=== PATIENT | female | born 1945 | race Caucasian/White ===

== ENCOUNTER 2017-03-01 13:20 | Inpatient (IN) | payer OTHER ==
[~2017-03-01] VITALS: Ht 157.5 cm; Wt 109.5 kg
[2017-03-01 14:47] LABS: HEMATOCRIT 35.5 % (36.0-46.0); MCHC 33.2 G/DL (30.0-36.0); MCV 96.2 FL (83-99); MEAN PLAT.VOLUME 11.5 uM^3 (9.5-12.4); NRBC (%) 0.1 /100 WBC (0-0); PLATELET COUNT 136 K/uL (156-360); RBC DIS.WIDTH-CV 14.6 % (11.8-14.6); RBC DIS.WIDTH-SD 51.3 % (39-53); RED BLOOD COUNT 3.69 M/uL (3.80-5.20); WHITE BLOOD COUNT 29.8 K/uL (4.1-10.2)
[2017-03-01 14:55] LABS: CHLORIDE 106 mEq/L (99-109); POTASSIUM 4.5 mEq/L (3.7-5.4); SODIUM 136 mEq/L (136-147)
[2017-03-01 14:57] LABS: GLUCOSE 137 mg/dL (70-99)
[2017-03-01 14:58] LABS: ANION GAP 16 MEQ/L (2-14)
[2017-03-01 15:00] LABS: GFR ESTIMATE (CALCULATED) 9 mL/min/
[2017-03-01 15:01] LABS: UREA NITROGEN (BUN) 63 mg/dL (9-23)
[2017-03-01] MEDS ORDERED: ALLOPURINOL100 MG PO (15:41)
[2017-03-01] MEDS ORDERED: SYNTHROID137 MCG PO (15:41)
[2017-03-01] MEDS ORDERED: TOPROL XL50 MG PO (15:42)
[2017-03-01] MEDS ORDERED: TOPROL XL100 MG PO (15:42)
[2017-03-01] MEDS ORDERED: LO-DOSE ASPIRIN81 M2 PO (15:42)
[2017-03-01 16:59] LABS: ADD MIUA? YES; BILIRUBIN NEGATIVE; BLOOD MODERATE; GLUCOSE (STRIP) NEGATIVE; KETONES NEGATIVE; LEUKOCYTES LARGE; NITRITE NEGATIVE; PROTEIN (STRIP) 30; SPECIFIC GRAVITY 1.015 (1.000-1.030); UROBILINOGEN 0.2 MG/DL (0.2-1.0)
[2017-03-01 17:02] LABS: COLOR YELLOW ((YELLOW))
[2017-03-01 17:20] LABS: BACTERIA 1+ /HPF; CASTS NONE SEEN /LPF; CRYSTALS NONE SEEN; EPITHELIAL CELLS NONE SEEN /HPF; MUCUS NONE SEEN /LPF; RED BLOOD CELLS 0-5 /HPF (0-5); WHITE BLOOD CELLS TNTC /HPF (0-5)
[2017-03-01 21:57] LABS: BASE EXCESS -9.3 mEq/L (-3 to +3); BICARBONATE 15.1 mEq/L (22-26); CARBOXY HGB 1.5 % (0-5); COMMENTS - BLOOD GASES C+; DEVICE NC; METHEMOGLOBIN 0.7 % (0-1.5); O2 FLOW 1 L/MIN; PCO2 28 mm Hg (35-45); PO2 69 mm Hg (80-100); SITE RR; TOTAL RESP RATE 32 resp/min; pH 7.34 (7.35-7.45)
[2017-03-01 22:14] LABS: POINT-OF-CARE METER ID UU13113702
[2017-03-01 23:04] LABS: TROP-I INTERPRETATION NEGATIVE; TROPONIN-I 0.02 ng/mL (0.0-0.30)
[2017-03-02 00:20] LABS: CHLORIDE 105 mEq/L (99-109); SODIUM 134 mEq/L (136-147)
[2017-03-02 00:21] LABS: POTASSIUM 5.7 mEq/L (3.7-5.4)
[2017-03-02 00:22] LABS: GLUCOSE 116 mg/dL (70-99)
[2017-03-02 00:23] LABS: ANION GAP 15 MEQ/L (2-14)
[2017-03-02 00:26] LABS: GFR ESTIMATE (CALCULATED) 9 mL/min/
[2017-03-02 00:27] LABS: UREA NITROGEN (BUN) 66 mg/dL (9-23)
[2017-03-02 03:03] VITALS: BP 122/56
[2017-03-02 04:09] LABS: HEMATOCRIT 32.8 % (36.0-46.0); MCH 32.1 PG (29.0-34.0); MCHC 33.8 G/DL (30.0-36.0); MCV 94.8 FL (83-99); MEAN PLAT.VOLUME 11.7 uM^3 (9.5-12.4); PLATELET COUNT 102 K/uL (156-360); RBC DIS.WIDTH-CV 14.7 % (11.8-14.6); RBC DIS.WIDTH-SD 50.6 % (39-53); RED BLOOD COUNT 3.46 M/uL (3.80-5.20); WHITE BLOOD COUNT 22.8 K/uL (4.1-10.2)
[2017-03-02 04:27] LABS: CHLORIDE 107 mEq/L (99-109); POTASSIUM 5.3 mEq/L (3.7-5.4); SODIUM 136 mEq/L (136-147)
[2017-03-02 04:28] LABS: GLUCOSE 112 mg/dL (70-99)
[2017-03-02 04:30] LABS: ANION GAP 16 MEQ/L (2-14)
[2017-03-02 04:32] LABS: GFR ESTIMATE (CALCULATED) 9 mL/min/
[2017-03-02 04:33] LABS: UREA NITROGEN (BUN) 71 mg/dL (9-23)
[2017-03-02 04:42] VITALS: BP 122/56
[2017-03-02 07:34] VITALS: BP 113/59
[2017-03-02 11:42] VITALS: BP 101/56
[2017-03-02 13:52] LABS: ANION GAP 16 MEQ/L (2-14); CHLORIDE 107 MEQ/L (99-109); GFR ESTIMATE (CALCULATED) 11 mL/min/; GLUCOSE 105 mg/dL (70-99); POTASSIUM 4.5 MEQ/L (3.7-5.4); SAMPLE HEMOLYSIS CHECK 0; SAMPLE ICTERIC CHECK 0; SAMPLE LIPEMIA CHECK 0; SODIUM 137 MEQ/L (136-147); UREA NITROGEN (BUN) 72 mg/dL (9-23)
[2017-03-02 15:26] VITALS: BP 120/60
[2017-03-02 18:03] LABS: CHLORIDE 107 mEq/L (99-109); POTASSIUM 4.2 mEq/L (3.7-5.4); SODIUM 139 mEq/L (136-147)
[2017-03-02 18:05] LABS: GLUCOSE 131 mg/dL (70-99)
[2017-03-02 18:06] LABS: ANION GAP 14 MEQ/L (2-14)
[2017-03-02 18:08] LABS: GFR ESTIMATE (CALCULATED) 10 mL/min/
[2017-03-02 18:09] LABS: UREA NITROGEN (BUN) 74 mg/dL (9-23)
[2017-03-02 20:45] VITALS: BP 119/62
[2017-03-03] VITALS (7 sets, daily range): BP systolic 119–137; BP diastolic 57–74
[2017-03-03 05:15] LABS: CHLORIDE 107 mEq/L (99-109); POTASSIUM 3.7 mEq/L (3.7-5.4); SODIUM 137 mEq/L (136-147)
[2017-03-03 05:17] LABS: GLUCOSE 112 mg/dL (70-99)
[2017-03-03 05:19] LABS: ANION GAP 13 MEQ/L (2-14)
[2017-03-03 05:21] LABS: GFR ESTIMATE (CALCULATED) 12 mL/min/
[2017-03-03 05:22] LABS: UREA NITROGEN (BUN) 73 mg/dL (9-23)
[2017-03-03 07:58] LABS: POINT-OF-CARE METER ID UU13113781
[2017-03-03 09:28] LABS: HEMATOCRIT 28.5 % (36.0-46.0); MCH 32.2 PG (29.0-34.0); MCV 94.7 FL (83-99); MEAN PLAT.VOLUME 12.5 uM^3 (9.5-12.4); PLATELET COUNT 108 K/uL (156-360); RBC DIS.WIDTH-CV 14.6 % (11.8-14.6); RBC DIS.WIDTH-SD 50.2 % (39-53); RED BLOOD COUNT 3.01 M/uL (3.80-5.20); WHITE BLOOD COUNT 21.6 K/uL (4.1-10.2)
[2017-03-03 09:56] LABS: BASOPHIL COUNT 0.1 K/uL (0-0.1); EOSINOPHIL (%) 0.2 % (0-5); IMMATURE GRANULOCYTE (%) 0.9 % (0.0-0.7); IMMATURE GRANULOCYTE COUNT 0.2 K/uL; INSTRUMENT ABS NEUTROPHIL CT 19.2 K/uL; LYMPHOCYTE COUNT 1.1 K/uL (1.0-2.8); MONOCYTE (%) 4.6 % (3-12); NEUTROPHIL (%) 88.8 % (45-76); NEUTROPHIL COUNT 19.2 K/uL (1.8-6.4)
[2017-03-03 10:40] LABS: HEMATOLOGY COMMENT 1 SMEAR COMPATIBLE
[2017-03-03 11:19] LABS: POINT-OF-CARE METER ID UU13113781
[2017-03-03 15:59] LABS: POINT-OF-CARE METER ID UU13113781
[2017-03-03 20:53] LABS: POINT-OF-CARE METER ID UU13113781
[2017-03-04 04:33] VITALS: BP 136/75
[2017-03-04 06:00] LABS: HEMATOCRIT 28.3 % (36.0-46.0); MCHC 33.6 G/DL (30.0-36.0); MCV 95.3 FL (83-99); MEAN PLAT.VOLUME 12.3 uM^3 (9.5-12.4); PLATELET COUNT 139 K/uL (156-360); RBC DIS.WIDTH-CV 14.9 % (11.8-14.6); RBC DIS.WIDTH-SD 51.8 % (39-53); RED BLOOD COUNT 2.97 M/uL (3.80-5.20); WHITE BLOOD COUNT 16.4 K/uL (4.1-10.2)
[2017-03-04 06:26] LABS: ANION GAP 11 MEQ/L (2-14); CHLORIDE 111 MEQ/L (99-109); GFR ESTIMATE (CALCULATED) 15 mL/min/; GLUCOSE 95 mg/dL (70-99); SAMPLE HEMOLYSIS CHECK 0; SAMPLE ICTERIC CHECK 0; SAMPLE LIPEMIA CHECK 0; SODIUM 140 MEQ/L (136-147); UREA NITROGEN (BUN) 59 mg/dL (9-23)
[2017-03-04 07:45] VITALS: BP 144/75
[2017-03-04 11:20] LABS: POINT-OF-CARE METER ID UU13113781
[2017-03-04 13:10] VITALS: BP 135/75
[2017-03-04 15:55] LABS: POINT-OF-CARE METER ID UU13113781
[2017-03-04 17:33] VITALS: BP 146/66
[2017-03-04 19:36] VITALS: BP 148/70
[2017-03-04 21:12] LABS: POINT-OF-CARE METER ID UU13113781
[2017-03-05 00:10] VITALS: BP 148/70
[2017-03-05 03:46] VITALS: BP 121/59
[2017-03-05 07:08] LABS: HEMATOCRIT 28.6 % (36.0-46.0); MCH 31.8 PG (29.0-34.0); MCHC 32.9 G/DL (30.0-36.0); MCV 96.6 FL (83-99); PLATELET COUNT 160 K/uL (156-360); RBC DIS.WIDTH-CV 14.8 % (11.8-14.6); RBC DIS.WIDTH-SD 52.5 % (39-53); RED BLOOD COUNT 2.96 M/uL (3.80-5.20)
[2017-03-05 07:10] LABS: WHITE BLOOD COUNT 10.5 K/uL (4.1-10.2)
[2017-03-05 07:15] VITALS: BP 145/69
[2017-03-05 07:46] LABS: ANION GAP 12 MEQ/L (2-14); CHLORIDE 110 MEQ/L (99-109); GFR ESTIMATE (CALCULATED) 19 mL/min/; GLUCOSE 107 mg/dL (70-99); POTASSIUM 4.1 MEQ/L (3.7-5.4); SAMPLE HEMOLYSIS CHECK 0; SAMPLE ICTERIC CHECK 0; SAMPLE LIPEMIA CHECK 0; SODIUM 141 MEQ/L (136-147); UREA NITROGEN (BUN) 52 mg/dL (9-23)
[2017-03-05 13:30] VITALS: BP 121/69
[2017-03-05 16:07] VITALS: BP 148/69
[2017-03-05 17:04] LABS: POINT-OF-CARE METER ID UU14162508
[2017-03-05 19:47] VITALS: BP 144/61
[2017-03-06 00:15] VITALS: BP 162/72
[2017-03-06 04:13] VITALS: BP 136/70
[2017-03-06 07:54] LABS: ANION GAP 12 MEQ/L (2-14); CHLORIDE 109 MEQ/L (99-109); GFR ESTIMATE (CALCULATED) 22 mL/min/; GLUCOSE 130 mg/dL (70-99); POTASSIUM 4.1 MEQ/L (3.7-5.4); SAMPLE HEMOLYSIS CHECK 0; SAMPLE ICTERIC CHECK 0; SAMPLE LIPEMIA CHECK 0; SODIUM 140 MEQ/L (136-147); UREA NITROGEN (BUN) 44 mg/dL (9-23)
[2017-03-06 08:00] VITALS: BP 160/72
[2017-03-06 12:13] LABS: URIC ACID 7.1 mg/dL (3.1-9.2)
[2017-03-06 16:00] VITALS: BP 136/70
[2017-03-06 16:11] LABS: POINT-OF-CARE METER ID UU14162508
[2017-03-06 19:55] VITALS: BP 126/68
[2017-03-06 22:37] LABS: POINT-OF-CARE METER ID UU14162508
[2017-03-06 23:30] VITALS: BP 131/83
[2017-03-07 07:23] LABS: EOSINOPHIL (%) 0.2 % (0-5); HEMATOCRIT 28.4 % (36.0-46.0); IMMATURE GRANULOCYTE (%) 3.6 % (0.0-0.7); IMMATURE GRANULOCYTE COUNT 0.3 K/uL; INSTRUMENT ABS NEUTROPHIL CT 6.8 K/uL; LYMPHOCYTE COUNT 1.2 K/uL (1.0-2.8); MCH 31.4 PG (29.0-34.0); MCV 97.9 FL (83-99); MEAN PLAT.VOLUME 11.2 uM^3 (9.5-12.4); MONOCYTE (%) 8.6 % (3-12); MONOCYTE COUNT 0.8 K/uL (0-0.8); NEUTROPHIL (%) 74.4 % (45-76); NEUTROPHIL COUNT 6.8 K/uL (1.8-6.4); RBC DIS.WIDTH-CV 14.6 % (11.8-14.6); RBC DIS.WIDTH-SD 52.7 % (39-53); WHITE BLOOD COUNT 9.2 K/uL (4.1-10.2)
[2017-03-07 07:25] LABS: PLATELET COUNT 230 K/uL (156-360)
[2017-03-07 07:45] LABS: ANION GAP 12 MEQ/L (2-14); CHLORIDE 109 MEQ/L (99-109); GFR ESTIMATE (CALCULATED) 20 mL/min/; POTASSIUM 4.1 MEQ/L (3.7-5.4); SAMPLE HEMOLYSIS CHECK 0; SAMPLE ICTERIC CHECK 0; SAMPLE LIPEMIA CHECK 0; SODIUM 142 MEQ/L (136-147); UREA NITROGEN (BUN) 42 mg/dL (9-23)
[2017-03-07 07:47] LABS: GLUCOSE 96 mg/dL (70-99)
[2017-03-07 07:48] VITALS: BP 138/84
[2017-03-07 12:03] LABS: POINT-OF-CARE USER ID PUTDRM
[2017-03-07] MEDS ORDERED: VENTOLIN HFA18 GM IH (12:06)
[2017-03-07] MEDS ORDERED: PREDNISONE20 MG PO (12:06)
[2017-03-07] MEDS ORDERED: MUCINEX600 MG PO (12:06)
[2017-03-07] MEDS ORDERED: ANALGESIC BALM28 GM TP (12:06)
== END 2017-03-07 14:44 | disposition home or self-care (01) | DRG 871 ==
LOC: EME 13:20 → EDOF 16:01 → 4EAST 16:01 → EDOF 20:09 → 4EAST 03-02 02:53 → 2EASTP 03-05 13:30
PROVIDERS: Emergency Medicine; Hospitalist; Internal Medicine; Internal Medicine Nephrology
PROC: 0T778DZ Dilation of Left Ureter with Intraluminal Device, Via Natural or Artificial Opening Endoscopic (ICD-10-PCS; principal; 2017-03-02)
DX: A41.59 Other Gram-negative sepsis (principal); J96.01 Acute respiratory failure with hypoxia; B96.4 Proteus (mirabilis) (morganii) as the cause of diseases classified elsewhere; E11.22 Type 2 diabetes mellitus with diabetic chronic kidney disease; E87.2 Acidosis; I13.0 Hypertensive heart and chronic kidney disease with heart failure and stage 1 through stage 4 chronic kidney disease, or unspecified chronic kidney disease; N18.3 Chronic kidney disease, stage 3 (moderate); R65.21 Severe sepsis with septic shock; I50.32 Chronic diastolic (congestive) heart failure; E66.01 Morbid (severe) obesity due to excess calories; Z68.42 Body mass index [BMI] 45.0-49.9, adult; I27.2 Other secondary pulmonary hypertension; Z87.442 Personal history of urinary calculi; N17.9 Acute kidney failure, unspecified; N13.6 Pyonephrosis; E03.9 Hypothyroidism, unspecified; J98.11 Atelectasis
CPT/HCPCS: 36600; 71010; 71020; 73560; 74176; 80048; 80048 91; 80069; 81003; 82803; 82948; 83605; 83880; 84484; 84550; 85025; 85027; 87040; 87070; 87077; 87086; 87186; 87205; 87801; 93005; 93306; 94002; 94640; 94640 76; 94760; 94799; 97530 GO; 97530 GP; 99202; 99281; 99285; C1769; C1876; J0692; J0696; J1644; J1815; J1940; J7030; J7050; J7512

== ENCOUNTER 2017-05-02 07:01 | Day surgery (SDC) | payer OTHER ==
[~2017-05-02] VITALS: Ht 157.5 cm; Wt 104.3 kg
[~2017-05-02 07:01] MED LIST: ALLOPURINOL100 MG PO; ANALGESIC BALM28 GM TP; LO-DOSE ASPIRIN81 M2 PO; MUCINEX600 MG PO; PREDNISONE20 MG PO; SYNTHROID137 MCG PO; TOPROL XL100 MG PO; TOPROL XL50 MG PO; VENTOLIN HFA18 GM IH
[2017-05-02 08:21] LABS: POINT-OF-CARE METER ID UU13113694
[2017-05-02 08:26] VITALS: BP 171/80
[2017-05-02 08:36] VITALS: BP 161/86
[2017-05-02 11:02] VITALS: BP 143/79
[2017-05-02 11:26] VITALS: BP 158/78
== END 2017-05-02 11:32 | disposition home or self-care (01) ==
LOC: SDC 07:01
PROVIDERS: Urology
DX: N13.2 Hydronephrosis with renal and ureteral calculous obstruction (principal); I12.9 Hypertensive chronic kidney disease with stage 1 through stage 4 chronic kidney disease, or unspecified chronic kidney disease; E11.22 Type 2 diabetes mellitus with diabetic chronic kidney disease; N18.9 Chronic kidney disease, unspecified; E03.9 Hypothyroidism, unspecified; E55.9 Vitamin D deficiency, unspecified; E66.9 Obesity, unspecified; Z79.82 Long term (current) use of aspirin; Z87.440 Personal history of urinary (tract) infections; Z68.41 Body mass index [BMI] 40.0-44.9, adult
CPT/HCPCS: 74000; 76000; 82948; C1769; J0131; J0690; J2250; J2405; J2765; J3010; J7050